=== PATIENT | female | born 1945 | race Caucasian/White ===

== ENCOUNTER 2016-10-01 15:05 | Emergency (ER) | payer OTHER ==
[~2016-10-01] VITALS: Ht 170.2 cm; Wt 66.2 kg
[2016-10-01 15:20] VITALS: BP 142/82; PULSE 82; RESP 16; TEMP 98.5; O2SAT 98
--- NOTE | 2016-10-01 16:27 | RADHPO ---
EXAM DATE/TIME: 10/01/2016 16:20 [place] COMPARISON: RIBS LEFT(W PA CXR MIN 3VWS), February 28, 2015, 23:08. INDICATIONS : Patient complains of pain of right posterior chest after heavy lifting. MEDICAL HISTORY : None. SURGICAL HISTORY : None. ENCOUNTER: Initial ACUITY: 2 days PAIN SCORE: 10/10 LOCATION: Right chest posterior FINDINGS: A single view of the chest demonstrates the lungs to be symmetrically aerated without evidence of mas s, infiltrate or effusion. The cardiomediastinal contours are unremarkable. Osseous structures are intact. CONCLUSION: Normal examination. Fawad Lamas MD on October 01, 2016 at 16:25 Board Certified Radiologist. This report was verified electronically.
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
[2016-10-01] MEDS ORDERED: BACL10TA PO (16:32)
== END 2016-10-01 16:46 | disposition home or self-care (01) ==
LOC: PHEFT 15:05
DX: M62.838 Other muscle spasm (principal); T14.90 Injury, unspecified; X50.0XXA Overexertion from strenuous movement or load, initial encounter; Y93.89 Activity, other specified; Y92.9 Unspecified place or not applicable
CPT/HCPCS: 71010; 99283

== ENCOUNTER 2016-12-08 12:29 | Emergency (ER) | payer OTHER ==
[~2016-12-08] VITALS: Ht 170.2 cm; Wt 61.0 kg
[~2016-12-08 12:29] MED LIST: BACL10TA PO
[2016-12-08 12:39] VITALS: BP 116/75; PULSE 95; RESP 16; TEMP 98.9; O2SAT 96
[2016-12-08] MEDS ORDERED: SODIUM CHLOR 0.9% 1000 ML INJ 1,000 ML IV SCH (12:59)
[2016-12-08] MEDS ORDERED: ONDANSETRON HCL 4 MG/2 ML VIAL IV ONE (13:00)
[2016-12-08] MEDS ORDERED: SODIUM CHLORIDE 0.9% FLUSH 10 ML FLUSH IV FLUSH PRN (13:00)
--- NOTE | 2016-12-08 13:02 | PD ---
HPI Chief Complaint: Abdominal Pain Time Seen by Provider: 12:51 Travel History International Travel<30 days: No Contact w/Intl Traveler<30days: No Traveled to known affect area: No History of Present Illness HPI This is a 71-year-old female who presents to the emergency department with nausea vomiting and diarrhea that started yesterday, constant, moderate severity , associated with lower cramping abdominal pain. She says she's had chills. She says she's had watery diarrhea that started last evening and she vomited twice. She feels like she has nothing in her stomach and she's having trouble staying hydrated. She says everyone in her family is sick with similar symptoms including her grandchildren, and one of her sons that lives with her. She denies any recent antibiotic use. She's had an emergency but otherwise no abdominal surgeries and she is otherwise quite healthy. PFSH Past Medical History Arthritis: No Asthma: No Autoimmune Disease: No Blood Disorders: No Anxiety: No Depression: No Heart Rhythm Problems: Yes Cancer: No Cardiovascular Problems: Yes (MVP(MITRAL VALVE PROLAPSE)) Chemotherapy: No Congestive Heart Failure: No COPD: No Cerebrovascular Accident: No Diabetes: No Diminished Hearing: No Endocrine: No Gastrointestinal Disorders: No GERD: No Glaucoma: No Genitourinary: Yes (UTIs) Headaches: No Hepatitis: No Hiatal Hernia: No Hypertension: Yes Immune Disorder: No Kidney Stones: No Musculoskeletal: Yes (LT HIP PINS, LT PATELLA FX, COCCYX FX) Neurologic: Yes Psychiatric: No Respiratory: No Immunizations Current: Yes Myocardial Infarction: No Radiation Therapy: No Renal Failure: No Seizures: No Sickle Cell Disease: No Sleep Apnea: No Thyroid Disease: No Ulcer: No ?: Not Menopausal: Yes : 2 Para: 2 Past Surgical History Abdominal Surgery: No AICD: No Cardiac Surgery: No Section: Yes (X1) Ear Surgery: No Endocrine Surgery: No Eye Surgery: Yes Genitourinary Surgery: No Gynecologic Surgery: No Joint Replacement: No Neurologic Surgery: No Oral Surgery: Yes Pacemaker: No Thoracic Surgery: No Tonsillectomy: Yes Other Surgery: Yes Social History Alcohol Use: No Tobacco Use: No Substance Use: No Allergies-Medications (Allergen,Severity, Reaction): Coded Allergies: Bactrim (Verified Allergy, Severe, GI UPSET, 12/08/16) Cipro (Verified Allergy, Severe, SOB, 12/08/16) Doxycycline (Verified Allergy, Severe, Nausea/Vomiting, 12/08/16) "JUST TEARS UP MY STOMACH" Lortab (Verified Allergy, Severe, HEART PALPITATIONS, 12/08/16) Morphine (Verified Adverse Reaction, Severe, FEELS HEART STOP, 12/08/16) Prednisone (Verified Adverse Reaction, Severe, UPSET STOMACH, 12/08/16) Percocet (Verified Adverse Reaction, Intermediate, STOMACH PAIN, NAUSEA, ) Erythromycins (Verified Adverse Reaction, Mild, STOMACH PAIN, 12/08/16) Keflex (Verified Adverse Reaction, Mild, UPSET STOMACH, 12/08/16) Reported Meds & Prescriptions Reported Meds & Active Scripts Active No Active Prescriptions or Reported Medications Review of Systems Except as stated in HPI: all other systems reviewed are Neg Physical Exam Narrative GENERAL: Uncomfortable appearing SKIN: Dry with skin tenting. HEAD: Atraumatic. Normocephalic. EYES: Pupils equal and round. No injection or drainage. ENT: Dry mucous membranes. Smells like ketones. NECK: Trachea midline. CARDIOVASCULAR: Regular rate and rhythm. No murmur appreciated. RESPIRATORY: Clear to auscultation. Breath sounds equal bilaterally. GASTROINTESTINAL: Abdomen soft, non-tender, nondistended. MUSCULOSKELETAL: No obvious deformities. NEUROLOGICAL: Awake and alert. No obvious cranial nerve deficits. Moving all extremities. PSYCHIATRIC: Appropriate mood and affect; insight and judgment normal. Data Data Last Documented VS Vital Signs Date Time Temp Pulse Resp B/P Pulse Ox O2 Delivery O2 Flow Rate FiO2 12/08/16 13:48 98 Room Air 12/08/16 12:39 98.9 95 16 116/75 Orders Complete Blood Count With Diff (12/08/16 12:59) Comprehensive Metabolic Panel (12/08/16 12:59) Lipase (12/08/16 12:59) Urinalysis - C+S If Indicated (12/08/16 12:59) Iv Access Insert/Monitor (12/08/16 12:59) Ecg Monitoring (12/08/16 12:59) Oximetry (12/08/16 12:59) Sodium Chlor 0.9% 1000 Ml Inj (Ns 1000 M (12/08/16 12:59) Sodium Chloride 0.9% Flush (Ns Flush) (12/08/16 13:00) Ondansetron Inj (Zofran Inj) (12/08/16 13:00) Acetaminophen (Tylenol) (12/08/16 13:15) Labs Laboratory Tests Test 12/08/16 13:28 White Blood Count 6.5 TH/MM3 Red Blood Count 4.46 MIL/MM3 Hemoglobin 13.6 GM/DL Hematocrit 40.6 % Mean Corpuscular Volume 91.0 FL Mean Corpuscular Hemoglobin 30.6 PG Mean Corpuscular Hemoglobin 33.6 % Concent Red Cell Distribution Width 12.3 % Platelet Count 229 TH/MM3 Mean Platelet Volume 7.6 FL Neutrophils (%) (Auto) 83.7 % Lymphocytes (%) (Auto) 9.3 % Monocytes (%) (Auto) 2.8 % Eosinophils (%) (Auto) 0.2 % Basophils (%) (Auto) 4.0 % Neutrophils # (Auto) 5.4 TH/MM3 Lymphocytes # (Auto) 0.6 TH/MM3 Monocytes # (Auto) 0.2 TH/MM3 Eosinophils # (Auto) 0.0 TH/MM3 Basophils # (Auto) 0.3 TH/MM3 CBC Comment DIFF FINAL Differential Comment Sodium Level 141 MEQ/L Potassium Level 3.6 MEQ/L Chloride Level 105 MEQ/L Carbon Dioxide Level 24.4 MEQ/L Anion Gap 12 MEQ/L Blood Urea Nitrogen 17 MG/DL Creatinine 1.00 MG/DL Estimat Glomerular Filtration 55 ML/MIN Rate Random Glucose 106 MG/DL Calcium Level 8.8 MG/DL Total Bilirubin 0.5 MG/DL Aspartate Amino Transf 12 U/L (AST/SGOT) Alanine Aminotransferase 15 U/L (ALT/SGPT) Alkaline Phosphatase 86 U/L Total Protein 8.4 GM/DL Albumin 3.6 GM/DL Lipase 163 U/L [facility] Medical Decision Making Medical Screen Exam Complete: Yes Emergency Medical Condition: Yes Interpretation(s) Afebrile, mild tachycardia, normotensive No leukocytosis 83% neutrophils Electrolytes are reassuring Lipase is normal Differential Diagnosis Gastroenteritis, colitis, appendicitis, dehydration, electrolyte abnormality Narrative Course This is a 71-year-old female who presents to the emergency department with nausea, vomiting and diarrhea. She appears dehydrated on exam. Vital signs are reassuring. Her family is sick with similar symptoms. She has a benign abdomen. She was placed on a monitor and an IV was established. Labs are reassuring. She was given 2 L of IV hydration and antiemetics. She feels much better following treatment. She'll be discharged home on Zofran and Imodium. Given her benign exam, labs and sick contact history of don't think imaging is warranted. Patient will be discharged home. Diagnosis Primary Impression: Dehydration Additional Impression: Gastroenteritis Patient Instructions: General Instructions Additional Instructions: If you develop lightheadedness, dizziness, persistent vomiting, inability to eat , or severe abdominal pain return to the emergency department. Followup with your primary care physician in 2-3 days if your symptoms have not resolved. Wash your hands aggressively after using the restroom as to not spread your illness to others. Do not return to work until your symptoms have resolved. Take Zofran as needed for nausea. Med/Other Pt SpecificInfo: Prescription(s) given Scripts Loperamide 2 Mg Cap2 Mg PO DIRECTED PRN (DIARRHEA) #10 CAP One capsule after each loose stool. Not to exceed 8 capsules per day. Prov:Anabela Orona MD 12/08/16 Ondansetron Odt (Zofran Odt)4 Mg Tab4 Mg SL Q6HR PRN (Nausea/Vomiting) #15 TAB Prov:Anabela Orona MD 12/08/16 Disposition: 01 DISCHARGE HOME Condition: Stable Anabela Orona MD Dec 08, 2016 13:02
[2016-12-08] MEDS ORDERED: ACETAMINOPHEN 325 MG TAB PO ONE (13:15)
[2016-12-08 13:37] LABS: AUTOMATED NEUTROPHIL # 5.4 TH/MM3 (1.8-7.7); BASOPHIL # 0.3 TH/MM3 (0-0.2); EOSINOPHIL % 0.2 % (0.0-4.0); HEMATOCRIT 40.6 % (35.0-46.0); HEMO FLAGS DIFF FINAL; LYMPH % 9.3 % (9.0-44.0); LYMPHOCYTE # 0.6 TH/MM3 (1.0-4.8); MEAN CORPUSCULAR HEMOGLOBIN 30.6 PG (27.0-34.0); MEAN CORPUSCULAR HGB CONC 33.6 % (32.0-36.0); MONO % 2.8 % (0.0-8.0); NEUT % 83.7 % (16.0-70.0); PLATELET COUNT 229 TH/MM3 (150-450); RED BLOOD COUNT 4.46 MIL/MM3 (4.00-5.30); RED CELL DISTRIBUTION WIDTH 12.3 % (11.6-17.2); WHITE BLOOD COUNT 6.5 TH/MM3 (4.0-11.0)
[2016-12-08 13:47] LABS: CHLORIDE 105 MEQ/L (98-107); POTASSIUM 3.6 MEQ/L (3.5-5.1); SODIUM (NA) 141 MEQ/L (136-145)
[2016-12-08 13:48] VITALS: O2SAT 98
[2016-12-08 13:51] LABS: ANION GAP 12 MEQ/L (5-15); BICARBONATE 24.4 MEQ/L (21.0-32.0); BLOOD UREA NITROGEN 17 MG/DL (7-18)
[2016-12-08 13:54] LABS: ALT (GPT) 15 U/L (10-53); AST (GOT) 12 U/L (15-37); GLOMERULAR FILTRATION RATE 55 ML/MIN (>89)
[2016-12-08 13:56] LABS: TOTAL BILIRUBIN ADULT 0.5 MG/DL (0.2-1.0)
[2016-12-08 13:57] LABS: ALKALINE PHOSPHATASE 86 U/L (45-117)
[2016-12-08] MEDS ORDERED: ZOFR4TAB3 SL (14:16)
[2016-12-08] MEDS ORDERED: LOPE2CAP PO (14:16)
[2016-12-08] MEDS ORDERED: SODIUM CHLOR 0.9% 1000 ML INJ 1,000 ML IV ONE (14:30)
[2016-12-08 15:15] VITALS: BP 132/74; PULSE 76; RESP 18; O2SAT 98
== END 2016-12-08 15:17 | disposition home or self-care (01) ==
LOC: PHED 12:29
DX: E86.0 Dehydration (principal); K52.9 Noninfective gastroenteritis and colitis, unspecified; I34.1 Nonrheumatic mitral (valve) prolapse; I10 Essential (primary) hypertension
CPT/HCPCS: 80053; 83690; 85025; 96361; 96374; 99284; J2405; J7030

== ENCOUNTER 2017-02-13 17:40 | Emergency (ER) | payer OTHER ==
[~2017-02-13] VITALS: Ht 170.2 cm; Wt 61.5 kg
[~2017-02-13 17:40] MED LIST changes: -BACL10TA PO; +LOPE2CAP PO; +ZOFR4TAB3 SL
[2017-02-13 17:44] VITALS: PULSE 87; RESP 16; TEMP 98.2; O2SAT 100
[2017-02-13 17:54] VITALS: BP 185/107
--- NOTE | 2017-02-13 18:16 | PD ---
HPI Chief Complaint: Oral / Dental Pain or Problem Time Seen by Provider: 18:05 Travel History International Travel<30 days: No Contact w/Intl Traveler<30days: No Traveled to known affect area: No History of Present Illness HPI 71-year-old female presents emergency department for evaluation of left lower dental pain for 2 days. She reports "bad teeth" at the site of pain. She denies fever, chills, difficulty swallowing, headache. She reports the pain was unrelieved after taking one Aleve earlier today. PFSH Past Medical History Hx Anticoagulant Therapy: No Arthritis: No Asthma: No Autoimmune Disease: No Blood Disorders: No Anxiety: No Depression: No Cancer: No Cardiovascular Problems: Yes (CHOL) Chemotherapy: No Congestive Heart Failure: No COPD: No Cerebrovascular Accident: No Diabetes: No Diminished Hearing: No Endocrine: No Gastrointestinal Disorders: No GERD: No Glaucoma: No Genitourinary: Yes (UTIs) Headaches: No Hepatitis: No Hiatal Hernia: No Hypertension: Yes Immune Disorder: No Kidney Stones: No Musculoskeletal: Yes (LT HIP PINS, LT PATELLA FX, COCCYX FX) Neurologic: Yes Psychiatric: No Respiratory: No Immunizations Current: Yes Myocardial Infarction: No Radiation Therapy: No Renal Failure: No Seizures: No Sickle Cell Disease: No Sleep Apnea: No Thyroid Disease: No Ulcer: No ?: Not Menopausal: Yes : 2 Para: 2 Past Surgical History Abdominal Surgery: No AICD: No Cardiac Surgery: No Section: Yes (X1) Ear Surgery: No Endocrine Surgery: No Eye Surgery: Yes Genitourinary Surgery: No Gynecologic Surgery: No Joint Replacement: No Neurologic Surgery: No Oral Surgery: Yes Pacemaker: No Thoracic Surgery: No Tonsillectomy: Yes Other Surgery: Yes Social History Alcohol Use: No Tobacco Use: No Substance Use: No Allergies-Medications (Allergen,Severity, Reaction): Coded Allergies: Bactrim (Verified Allergy, Severe, GI UPSET, 02/13/17) Cipro (Verified Allergy, Severe, SOB, 02/13/17) Doxycycline (Verified Allergy, Severe, Nausea/Vomiting, 02/13/17) "JUST TEARS UP MY STOMACH" Lortab (Verified Allergy, Severe, HEART PALPITATIONS, 02/13/17) Morphine (Verified Adverse Reaction, Severe, FEELS HEART STOP, 02/13/17) Prednisone (Verified Adverse Reaction, Severe, UPSET STOMACH, 02/13/17) Percocet (Verified Adverse Reaction, Intermediate, STOMACH PAIN, NAUSEA, ) Erythromycins (Verified Adverse Reaction, Mild, STOMACH PAIN, 02/13/17) Keflex (Verified Adverse Reaction, Mild, UPSET STOMACH, 02/13/17) Reported Meds & Prescriptions Reported Meds & Active Scripts Active Penicillin V Potassium 250 Mg Tab 250 Mg PO Q6H Review of Systems Except as stated in HPI: all other systems reviewed are Neg Physical Exam Narrative GENERAL: Well-nourished, well-developed patient. SKIN: Focused skin assessment warm/dry. HEAD: Normocephalic. No facial drawl swelling. MOUTH: Widespread dental decay. Tooth 17 and 18 decayed with surrounding gum erythema and swelling. EYES: No scleral icterus. No injection or drainage. NECK: Supple, trachea midline. No JVD or lymphadenopathy. CARDIOVASCULAR: Regular rate and rhythm without murmurs, gallops, or rubs. RESPIRATORY: Breath sounds equal bilaterally. No accessory muscle use. GASTROINTESTINAL: Abdomen soft, non-tender, nondistended. MUSCULOSKELETAL: No cyanosis, or edema. Data Data Last Documented VS Vital Signs Date Time Temp Pulse Resp B/P Pulse Ox O2 Delivery O2 Flow Rate FiO2 02/13/17 17:54 185/107 02/13/17 17:44 98.2 87 16 100 MDM Medical Decision Making Medical Screen Exam Complete: Yes Emergency Medical Condition: Yes Differential Diagnosis Dental caries, dental abscess, periodontal disease Narrative Course 71-year-old female presents to the emergency department for left lower dental pain for 2 days. On exam she has widespread dental decay tooth #18 and 17 are decayed with surrounding gum erythema and mild swelling. Patient will be treated with penicillin for dental infection and instructed to follow-up with her dentist. Diagnosis Primary Impression: Dental infection Referrals: Dentist Scripts Penicillin V Potassium 250 Mg [id number] Mg PO Q6H #28 TAB Prov:Breana Griffith 02/13/17 Disposition: 01 DISCHARGE HOME Condition: Stable Breana Griffith Feb 13, 2017 18:16
[2017-02-13] MEDS ORDERED: PENI250T PO (18:23)
[2017-02-13] MEDS ORDERED: IBUPROFEN 600 MG TAB PO ONE (18:30)
== END 2017-02-13 18:37 | disposition home or self-care (01) ==
LOC: PHEFT 17:40
DX: K04.7 Periapical abscess without sinus (principal)
CPT/HCPCS: 99283

== ENCOUNTER 2017-02-18 22:58 | Emergency (ER) | payer OTHER ==
[~2017-02-18] VITALS: Ht 170.2 cm; Wt 62.2 kg
[~2017-02-18 22:58] MED LIST changes: -LOPE2CAP PO; +PENI250T PO; -ZOFR4TAB3 SL
[2017-02-18 23:05] VITALS: BP 142/92; PULSE 145; RESP 16; TEMP 98.1; O2SAT 98
[2017-02-18 23:15] VITALS: TEMP 98.1
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
[2017-02-18 23:40] VITALS: BP 179/103; PULSE 91; RESP 18; O2SAT 97
--- NOTE | 2017-02-19 10:35 | EKG ---
Date Performed: 02/18/2017 Time Performed: 23:17:53 PTAGE: 71 years EKG: Sinus rhythm WITH FREQUENT VENTRICULAR PREMATURE COMPLEXES ABNORMAL RHYTHM ECG PREVIOUS TRACING : 01/28/2011 20.54 DOCTOR: Maurilio Briscoe Interpretating Date/Time 02/19/2017 10:34:07
== END 2017-02-19 00:14 | disposition home or self-care (01) ==
LOC: PHED 22:58
DX: I49.3 Ventricular premature depolarization (principal); I10 Essential (primary) hypertension; R00.8 Other abnormalities of heart beat
CPT/HCPCS: 93005

== ENCOUNTER 2017-12-18 08:23 | Emergency (ER) | payer OTHER ==
[~2017-12-18] VITALS: Ht 170.2 cm; Wt 61.0 kg
[2017-12-18 08:27] VITALS: BP 180/91; PULSE 103; RESP 16; TEMP 98.4; O2SAT 98
[2017-12-18] MEDS ORDERED: AMOXICILLIN (TRIHYDRATE) 500 MG CAP PO ONE (09:15)
[2017-12-18] MEDS ORDERED: AMOX500T PO (09:25)
--- NOTE | 2017-12-18 09:27 | PD ---
HPI Chief Complaint: Oral / Dental Pain or Problem Time Seen by Provider: 08:57 Travel History International Travel<30 days: No Contact w/Intl Traveler<30days: No Traveled to known affect area: No History of Present Illness HPI 72-year-old female presents emergency department for evaluation of right upper tooth pain and headache that has been present over the last day. Says that she has a history of poor dentition that has required treatment previously. Patient has not followed up with her primary care physician or dentist. Says she has had general malaise over the last 2 weeks and believes that she may have some sort of flulike illness going on. Denies any unusual tastes or fluctuations. She denies any neck pain, fever. Denies shortness of breath, chest pain, cough, congestion. Denies any abdominal pain, dysuria or any other urinary symptoms. Denies nausea, vomiting or diarrhea. Says amoxicillin usually works for her dental infections. PFSH Past Medical History Hx Anticoagulant Therapy: No Arthritis: No Asthma: No Autoimmune Disease: No Blood Disorders: No Anxiety: No Depression: No Heart Rhythm Problems: Yes Cancer: No Cardiovascular Problems: Yes (HTN, CHOL) High Cholesterol: Yes Chemotherapy: No Chest Pain: Yes Congestive Heart Failure: No COPD: No Cerebrovascular Accident: No Diabetes: No Patient Takes Glucophage: No Diminished Hearing: No Endocrine: No Gastrointestinal Disorders: No GERD: No Glaucoma: No Genitourinary: Yes (UTIs) Headaches: No Hepatitis: No Hiatal Hernia: No Hypertension: Yes Immune Disorder: No Kidney Stones: No Musculoskeletal: Yes (LT HIP PINS, LT PATELLA FX, COCCYX FX) Neurologic: Yes Psychiatric: No Reproductive: No Respiratory: No Immunizations Current: Yes Myocardial Infarction: No Radiation Therapy: No Renal Failure: No Seizures: No Sickle Cell Disease: No Sleep Apnea: No Thyroid Disease: No Ulcer: No ?: Not Menopausal: Yes : 2 Para: 2 Past Surgical History Abdominal Surgery: No AICD: No Cardiac Surgery: No Section: Yes (X1) Ear Surgery: No Endocrine Surgery: No Eye Surgery: Yes (CATARACT) Genitourinary Surgery: No Gynecologic Surgery: No Insulin Pump: No Joint Replacement: No Neurologic Surgery: No Oral Surgery: Yes Pacemaker: No Thoracic Surgery: No Tonsillectomy: Yes Other Surgery: Yes Social History Alcohol Use: No Tobacco Use: No Substance Use: No Allergies-Medications (Allergen,Severity, Reaction): Coded Allergies: ciprofloxacin (Unverified Allergy, Severe, SOB, 12/18/17) doxycycline (Unverified Allergy, Severe, Nausea/Vomiting, 12/18/17) "JUST TEARS UP MY STOMACH" hydrocodone (Unverified Allergy, Severe, HEART PALPITATIONS, 12/18/17) sulfamethoxazole (Unverified Allergy, Severe, GI UPSET, 12/18/17) trimethoprim (Unverified Allergy, Severe, GI UPSET, 12/18/17) morphine (Unverified Adverse Reaction, Severe, FEELS HEART STOP, 12/18/17) prednisone (Unverified Adverse Reaction, Severe, UPSET STOMACH, 12/18/17) oxycodone (Unverified Adverse Reaction, Intermediate, STOMACH PAIN, NAUSEA , 12/18/17) azithromycin (Unverified Adverse Reaction, Mild, STOMACH PAIN, 12/18/17) cephalexin (Unverified Adverse Reaction, Mild, UPSET STOMACH, 12/18/17) erythromycin base (Unverified Adverse Reaction, Mild, STOMACH PAIN, ) Reported Meds & Prescriptions Reported Meds & Active Scripts Active Amoxicillin 500 Mg Tab 500 Mg PO TID 10 Days Review of Systems Except as stated in HPI: all other systems reviewed are Neg Physical Exam Narrative GENERAL: Well-nourished, well-developed patient. SKIN: Focused skin assessment warm/dry. HEAD: Normocephalic. EYES: No scleral icterus. No injection or drainage. Poor dentition, slight area of edema without obvious fluctuance or drainage. No erythema noted. No obvious edema of the facial soft tissue. NECK: Supple, trachea midline. No JVD or lymphadenopathy. No meningismus CARDIOVASCULAR: Regular rate and rhythm without murmurs, gallops, or rubs. RESPIRATORY: Breath sounds equal bilaterally. No accessory muscle use. GASTROINTESTINAL: Abdomen soft, non-tender, nondistended. MUSCULOSKELETAL: No cyanosis, or edema. BACK: Nontender without obvious deformity. No CVA tenderness. Data Data Last Documented VS Vital Signs Date Time Temp Pulse Resp B/P (MAP) Pulse Ox O2 Delivery O2 Flow Rate FiO2 12/18/17 08:27 98.4 103 16 180/91 (120) 98 Orders Orders Amoxicillin (Trimox) (12/18/17 09:15) Acetaminophen (Tylenol) (12/18/17 09:30) Ed Discharge Order (12/18/17 09:34) [facility] Medical Decision Making Medical Screen Exam Complete: Yes Emergency Medical Condition: Yes Differential Diagnosis Dental infection, pulpitis, gingivitis, abscess Narrative Course 72-year-old female presents emergency department for evaluation of right upper tooth pain and headache that has been present over the last day. Vital signs stable. Heart rate slightly elevated although it appears that her heart rate has been elevated from previous visits as well. Physical exam findings consistent with a dental infection. She has poor dentition with multiple tooth erosions and caries. Amoxicillin emergency department today. Patient will be discharged amoxicillin. The patient says amoxicillin usually works for her dental infections. Advised that she should follow-up with a dentist and her primary care physician. Diagnosis Primary Impression: Dental infection Referrals: Dentist Primary Care Physician Additional Instructions: Follow-up with a dentist as discussed. Take all medications as prescribed. You received a first dose of antibiotic while in the emergency department today. If you develop increased fever, facial swelling or worsening pain return to the emergency department. You may take Motrin per package instructions for your pain. Scripts Amoxicillin (Amoxicillin) 500 Mg Tab 500 MG PO TID for Infection for 10 Days, TAB 0 Refills Prov: Donald Lo MD 12/18/17 Disposition: 01 DISCHARGE HOME Condition: Stable Sandra Neville Dec 18, 2017 09:27
[2017-12-18] MEDS ORDERED: ACETAMINOPHEN 500 MG CPLT PO ONE (09:30)
== END 2017-12-18 09:49 | disposition home or self-care (01) ==
LOC: PHEFT 08:23
DX: K04.7 Periapical abscess without sinus (principal); R51 Headache; R53.81 Other malaise; I10 Essential (primary) hypertension; E78.00 Pure hypercholesterolemia, unspecified; Z87.440 Personal history of urinary (tract) infections; Z88.5 Allergy status to narcotic agent; Z88.2 Allergy status to sulfonamides; Z88.8 Allergy status to other drugs, medicaments and biological substances
CPT/HCPCS: 99283

== ENCOUNTER 2018-01-21 17:01 | Emergency (ER) | payer OTHER, MEDICAID ==
[~2018-01-21 17:01] MED LIST changes: +AMOX500T PO; -PENI250T PO
[2018-01-21 17:04] VITALS: BP 147/72; PULSE 82; RESP 16; TEMP 97.8; O2SAT 98
--- NOTE | 2018-01-21 17:34 | PD ---
HPI Chief Complaint: Pain: Acute or Chronic Time Seen by Provider: 17:32 Travel History International Travel<30 days: No Contact w/Intl Traveler<30days: No Traveled to known affect area: No History of Present Illness HPI Complaint of dental pain over to her left lower jaw molar, patient states that she had seen problem last year, but she is petrified of dentist and she has been trying to avoid them. She knows that she needs to follow-up with them eventually. Last year penicillin worked well for her and she states that the majority of her stated allergies are more side effects. Left hip pain is nonradiating, but she has noted a lump under her left jaw as well over the past couple of days. Patient denies any alleviating factors and is aggravated by chewing on that side. Patient denies any associated factors such as fever, rash , neck pain, chest pain, back pain, flank pain, abdominal pain, nausea vomiting or diarrhea. States allergy to Z-Sagar Keflex Cipro Doxy erythromycin hydrocodone oxycodone morphine prednisone sulfa. Past medical history significant for dental problems, tonsillectomy, hypertension hypercholesterolemia 1 previous history of UTIs, left hip repair, PFSH Past Medical History Hx Anticoagulant Therapy: No Arthritis: No Asthma: No Autoimmune Disease: No Blood Disorders: No Anxiety: No Depression: No Heart Rhythm Problems: Yes Cancer: No Cardiovascular Problems: Yes (HTN, CHOL) High Cholesterol: Yes Chemotherapy: No Chest Pain: Yes Congestive Heart Failure: No COPD: No Cerebrovascular Accident: No Diabetes: No Diminished Hearing: No Endocrine: No Gastrointestinal Disorders: No GERD: No Glaucoma: No Genitourinary: Yes (UTIs) Headaches: No Hepatitis: No Hiatal Hernia: No Hypertension: Yes Immune Disorder: No Kidney Stones: No Musculoskeletal: Yes (LT HIP PINS, LT PATELLA FX, COCCYX FX) Neurologic: Yes Psychiatric: No Reproductive: No Respiratory: No Immunizations Current: Yes Myocardial Infarction: No Radiation Therapy: No Renal Failure: No Seizures: No Sickle Cell Disease: No Sleep Apnea: No Thyroid Disease: No Ulcer: No ?: Not Menopausal: Yes : 2 Para: 2 Past Surgical History Abdominal Surgery: No AICD: No Cardiac Surgery: No Section: Yes (X1) Ear Surgery: No Endocrine Surgery: No Eye Surgery: Yes (CATARACT) Genitourinary Surgery: No Gynecologic Surgery: No Insulin Pump: No Joint Replacement: No Neurologic Surgery: No Oral Surgery: Yes Pacemaker: No Thoracic Surgery: No Tonsillectomy: Yes Other Surgery: Yes Social History Alcohol Use: No Tobacco Use: No Substance Use: No Allergies-Medications (Allergen,Severity, Reaction): Coded Allergies: ciprofloxacin (Unverified Allergy, Severe, SOB, 01/21/18) doxycycline (Unverified Allergy, Severe, Nausea/Vomiting, 01/21/18) "JUST TEARS UP MY STOMACH" hydrocodone (Unverified Allergy, Severe, HEART PALPITATIONS, 01/21/18) sulfamethoxazole (Unverified Allergy, Severe, GI UPSET, 01/21/18) trimethoprim (Unverified Allergy, Severe, GI UPSET, 01/21/18) morphine (Unverified Adverse Reaction, Severe, FEELS HEART STOP, 01/21/18) prednisone (Unverified Adverse Reaction, Severe, UPSET STOMACH, 01/21/18) oxycodone (Unverified Adverse Reaction, Intermediate, STOMACH PAIN, NAUSEA , 01/21/18) azithromycin (Unverified Adverse Reaction, Mild, STOMACH PAIN, 01/21/18) cephalexin (Unverified Adverse Reaction, Mild, UPSET STOMACH, 01/21/18) erythromycin base (Unverified Adverse Reaction, Mild, STOMACH PAIN, ) Reported Meds & Prescriptions Reported Meds & Active Scripts Active Penicillin V Potassium 500 Mg Tab 500 Mg PO Q8H 10 Days Review of Systems General / Constitutional: No: Fever Eyes: No: Visual changes HENT: Positive: Dental Difficulties Cardiovascular: No: Chest Pain or Discomfort Respiratory: No: Shortness of Breath Gastrointestinal: No: Abdominal Pain Genitourinary: No: Dysuria Musculoskeletal: No: Pain Skin: No Rash Neurologic: No: Weakness Psychiatric: No: Depression Endocrine: No: Polydipsia Hematologic/Lymphatic: No: Easy Bruising Physical Exam Narrative GENERAL: Well-nourished, well-developed patient in no apparent distress. SKIN: Warm and dry. HEAD: Atraumatic. Normocephalic. EYES: Pupils equal and round. No scleral icterus. No injection or drainage. ENT: No nasal bleeding or discharge. Mucous membranes pink and moist. Left mandibular to molar is showing signs of pericoronitis, gingivitis as well as tooth decay. NECK: Trachea midline. No JVD. Anterior left lymphadenopathy CARDIOVASCULAR: Regular rate and rhythm. no rubs or gallops RESPIRATORY: No accessory muscle use. Clear to auscultation. Breath sounds equal bilaterally. GASTROINTESTINAL: Abdomen soft, non-tender, nondistended. No rebound or guarding MUSCULOSKELETAL: Extremities without clubbing, cyanosis, or edema. No obvious deformities. NEUROLOGICAL: Awake and alert. No obvious cranial nerve deficits. Motor grossly within normal limits. Five out of 5 muscle strength in the arms and legs. Normal speech. PSYCHIATRIC: Appropriate mood and affect; insight and judgment normal. Data Data Last Documented VS Vital Signs Date Time Temp Pulse Resp B/P (MAP) Pulse Ox O2 Delivery O2 Flow Rate FiO2 01/21/18 17:04 97.8 82 16 147/72 (97) 98 Orders Orders Electrocardiogram (01/21/18 17:10) Penicillin V Potassium (Veetids) (01/21/18 17:45) [facility] Medical Decision Making Medical Screen Exam Complete: Yes Emergency Medical Condition: Yes Medical Record Reviewed: Yes Interpretation(s) EKG shows normal sinus rhythm, 73 bpm, normal intervals, no evidence of any ST elevation MS pattern, no LVH pattern. Differential Diagnosis Gingivitis versus dental infection versus pericoronitis versus STEMI Narrative Course After review of the EKG which is completely normal, and the patient's evaluation of her symptoms along with dental infection findings, this is not a cardiac type of presentation. I have is purely a dental presentation. Diagnosis Primary Impression: Dental infection Patient Instructions: Dental Caries (DC), General Instructions Scripts Penicillin V Potassium (Penicillin V Potassium) 500 Mg Tab 500 MG PO Q8H for Infection for 10 Days, #30 TAB 0 Refills Prov: Abel Tran MD 01/21/18 Disposition: 01 DISCHARGE HOME Condition: Stable Abel Tran MD January 21, 2018 17:34
[2018-01-21] MEDS ORDERED: PENICILLIN V POTASSIUM 500 MG TAB PO ONE (17:45)
[2018-01-21] MEDS ORDERED: PENI500T PO (17:45)
--- NOTE | 2018-01-22 22:31 | EKG ---
Date Performed: 01/21/2018 Time Performed: 17:12:12 PTAGE: 72 years EKG: Sinus rhythm NORMAL ECG INTERPRETATION BASED ON A DEFAULT AGE OF 39 YEARS PREVIOUS TRACING : 02/18/2017 23.17 Since the previous tracing, no significant change not ed DOCTOR: Stevenson Carroll Interpretating Date/Time 01/22/2018 22:29:29
== END 2018-01-21 18:27 | disposition home or self-care (01) ==
LOC: PHED 17:01
DX: K04.7 Periapical abscess without sinus (principal); E78.00 Pure hypercholesterolemia, unspecified; I10 Essential (primary) hypertension
CPT/HCPCS: 93005